=== PATIENT | male | born 1950 | race Caucasian/White ===

== ENCOUNTER 2017-10-02 19:15 | Observation (INO) ==
--- NOTE | 2017-10-02 19:51 | Emergency Department Note ---
Disposition Clinical Impression: Shortness of breath, Chest pain, rule out acute myocardial infarction Chest pain Qualifiers: Chest pain type: unspecified Qualified Code(s): R07.9 - Chest pain, unspecified Disposition: Admitted As Inpatient Condition: Fair Referrals: Vic López DO [Primary Care Provider] - Forms: ED Satisfaction Letter Time of Disposition: 21:44 General Adult HPI - General Chief complaint: ED Chest Pain Stated complaint: Chest Pain, Dizziness Time Seen by Provider: 10/02/17 19:23 Source: patient Mode of arrival: ambulatory Limitations: no limitations Nursing Notes Reviewed: Yes Vital Signs Reviewed: Yes - History of Present Illness HPI Narrative: Patient is a 66-year-old male that presents the emergency department with chest pain. Patient describes the chest pain as feeling like he had been punched in the chest. Patient states that at the time of examination he is chest pain- free. He does state that he has had some left arm and shoulder pain. Patient denies any worsening of his baseline shortness of breath with this chest pain. He does state that he had one episode of diaphoresis. Patient does state that he has a history of quadruple bypass that was approximately 14 years ago. He states that he had a catheterization a few years ago and was told that things looked okay at that time. Pain Scale: 8 - Related Data Allergies Allergy/AdvReac Type Severity Reaction Status Date / Time No Known Allergies Allergy Verified 10/02/17 19:17 All systems ED: reviewed and negative except as stated. Constitutional: Reports: other (diaphoresis). Denies: fever Cardiovascular: Reports: chest pain Respiratory: Reports: dyspnea (no worse than normal) Gastrointestinal: Denies: abdominal pain, nausea, vomiting Past Medical History - Past Medical History Medical history: Reports: arthritis, coronary artery disease, diabetes, hyperlipidemia, hypertension Surgical history: Reports: coronary bypass (CABG), orthopedic, other Psychiatric history: Reports: no psych history - Social History Smoking Status: Never smoker Alcohol use: Reports: none Drug use: Reports: none Physical Exam - General Limitations: no limitations General appearance: alert, in no apparent distress - Head Head exam: atraumatic, normocephalic - Eye Eye exam: Present: normal appearance, EOMI - Neck Neck exam: Present: normal inspection, full ROM, trachea midline - Chest Chest inspection: Present: normal inspection, symmetric chest wall rise, other ( scar from previous surgery ) - Respiratory Respiratory exam: Present: normal lung sounds bilaterally. Absent: respiratory distress, wheezes - Cardiovascular Cardiovascular exam: Present: normal rhythm, bradycardia, normal heart sounds, + S1, +S2 - Abdominal Exam Abdominal exam: Present: soft, Non-Tender, normal bowel sounds - Neurological Exam Neurological exam: Present: alert, oriented X3 - Psychiatric Psychiatric exam: Present: normal affect, normal mood - Skin Skin exam: Present: warm, dry, intact Course Vital Signs Temperature 97.8 F 10/02/17 19:17 Pulse Rate 54 10/02/17 19:17 Respiratory Rate 16 10/02/17 19:17 Blood Pressure 168/83 10/02/17 19:17 O2 Sat by Pulse Oximetry 95 10/02/17 19:17 Temperature 97.8 F 10/02/17 19:17 Pulse Rate 54 10/02/17 19:17 Respiratory Rate 16 10/02/17 19:17 Blood Pressure 168/83 10/02/17 19:17 O2 Sat by Pulse Oximetry 95 10/02/17 19:17 Oxygen Delivery Oxygen Delivery Room Air Medical Decision Making - MDM Narrative Medical decision making narrative: Based on the patient presenting to the emergency department with chest pain located in the center of his chest with an extensive cardiac history requiring quadruple bypass there is a high concern for cardiac related disease so we will obtain laboratory testing including a CBC, BMP, troponin and chest x-ray and EKG. Based on the patient's significant history and presenting illness I feel that this patient will likely need to be admitted to the hospital for further evaluation and management. Patient's laboratory testing was unremarkable. The chest x-ray did not show any acute process per radiology. His EKG did not show any acute ischemic changes at this time. However based on the significant past medical history and his presenting symptoms and feeling is necessary that the patient be admitted to the hospital for further evaluation and management. I called and spoke with the admitting hospitalist and he is except the patient to his service. Patient be admitted to the hospital this time for further evaluation and management. - Medical Records Medical records reviewed: Yes I reviewed the patient's medical records. - Lab Data Lab results reviewed: Yes I reviewed the patient's lab results. Result diagrams: 10/02/17 19:57 10/02/17 19:57 Lab Results 10/02/17 10/02/17 Range/Units 19:57 19:57 WBC 6.5 (4.3-11.1) K/mcL RBC 4.79 (4.19-5.50) M/mcL Hgb 14.4 (12.9-16.9) g/dL Hct 41.3 (37.5-50.1) % MCV 86.2 (83.0-100.0) fL MCH 30.1 (28.0-33.3) pg MCHC 34.9 (31.6-35.5) g/dL RDW 12.7 (11.5-14.5) % Plt Count 207 (140-400) K/mcL MPV 10.9 (9.4-12.4) fL Immature Gran % 0.2 (0-4) % Seg Neutrophils % 58.8 % Lymphocytes % 29.6 % Monocytes % 7.7 % Eosinophils % 2.9 % Basophils % 0.8 % Neutrophils # 3.8 (1.6-8.9) K/mcL Lymphocytes # 1.9 (0.6-4.6) K/mcL Monocytes # 0.5 (0.0-1.3) K/mcL Eosinophils # 0.2 (0.0-0.6) K/mcL Basophils # 0.1 (0.0-0.2) K/mcL Sodium 143 (136-145) mEq/L Potassium 3.3 L (3.5-5.1) mEq/L Chloride 106 (98-107) mEq/L Carbon Dioxide 30 H (23-29) mEq/L BUN 20 (8-23) mg/dL Creatinine 0.91 (0.70-1.30) mg/dL Est GFR ( Amer) > 60 (> 60) Est GFR (Non-Af Amer) > 60 (> 60) BUN/Creatinine Ratio 22 (6-26) Glucose 99 (70-105) mg/dL Calculated Osmolality 299 (280-300) Calcium 9.3 (8.6-10.3) mg/dL Troponin I < 0.03 (< 0.04) ng/mL - Radiology Data Radiology results reviewed: Yes I reviewed the patient's radiology results. Chest X-Ray 10/02/17 19:47 IMPRESSION: No acute process. D/ / Gurpreet Rivas MD / Gurpreet Rivas MD Interpreting Provider: Gurpreet Rivas MD - EKG Data EKG #1 EKG attestation: Yes I reviewed and interpreted this EKG. EKG results narrative: EKG shows a sinus bradycardia at a rate of 57 bpm, [place] interval of 191, QRS duration of 87, QTc of 387. This is compared to previous EKG on 04/19/10. This EKG also showed a sinus bradycardia at a rate of 54 bpm. No evidence of STEMI on EKG.
[2017-10-02 20:24] LABS: Basophils # 0.1 K/mcL (0.0-0.2); Basophils % 0.8 %; Eosinophils # 0.2 K/mcL (0.0-0.6); Eosinophils % 2.9 %; Hematocrit 41.3 % (37.5-50.1); Hemoglobin 14.4 g/dL (12.9-16.9); Immature Granulocytes % 0.2 % (0-4); Lymphocytes # 1.9 K/mcL (0.6-4.6); Lymphocytes % 29.6 %; Mean Corpuscular HGB Conc 34.9 g/dL (31.6-35.5); Mean Corpuscular Hemoglobin 30.1 pg (28.0-33.3); Mean Corpuscular Volume 86.2 fL (83.0-100.0); Mean Platelet Volume 10.9 fL (9.4-12.4); Monocytes # 0.5 K/mcL (0.0-1.3); Monocytes % 7.7 %; Neutrophils # 3.8 K/mcL (1.6-8.9); Platelet Count 207 K/mcL (140-400); Red Blood Count 4.79 M/mcL (4.19-5.50); Red Cell Distribution Width 12.7 % (11.5-14.5); Segmented Neutrophils % 58.8 %
[2017-10-02] MEDS ORDERED: Aspirin 81 MG TAB.CHEW PO STA (20:26)
--- NOTE | 2017-10-02 20:27 | Emergency Department Note ---
Disposition Clinical Impression: ACS (acute coronary syndrome) Disposition: Still a Patient Referrals: Vic López DO [Primary Care Provider] - Forms: ED Satisfaction Letter General Adult HPI - General Chief complaint: ED Chest Pain Stated complaint: Chest Pain, Dizziness Time Seen by Provider: 10/02/17 19:23 Source: patient Mode of arrival: ambulatory Limitations: no limitations - History of Present Illness Pain Scale: 8 - Related Data Allergies Allergy/AdvReac Type Severity Reaction Status Date / Time No Known Allergies Allergy Verified 10/02/17 19:17 Constitutional: Reports: other (diaphoresis). Denies: fever Cardiovascular: Reports: chest pain Respiratory: Reports: dyspnea (no worse than normal) Gastrointestinal: Denies: abdominal pain, nausea, vomiting Past Medical History - Past Medical History Medical history: Reports: arthritis, coronary artery disease, diabetes, hyperlipidemia, hypertension Surgical history: Reports: coronary bypass (CABG), orthopedic, other Psychiatric history: Reports: no psych history - Social History Smoking Status: Never smoker Alcohol use: Reports: none Drug use: Reports: none Physical Exam - General Limitations: no limitations General appearance: alert, in no apparent distress Course - Reevaluation(s) Reevaluation #1: Attestation Note I examined this patient and my medical decision-making was reviewed with the Resident Physician, PAULINE SOTO. I agree with the documented findings, disposition and treatment plan as described except to the extent set forth below. I have personally performed a face to face evaluation on this patient. I have reviewed and agree with the care plan. Briefly: 66-year-old male by private vehicle history quadruple bypass with chest pain and pressure. EKG shows nonspecific changes but no acute ischemic changes awaiting troponin. Physical examination is benign. Patient will be admitted on his our intention for ACS workup and rule out. Admission disposition pending Time: 20:25 Vital Signs Temperature 97.8 F 10/02/17 19:17 Pulse Rate 54 10/02/17 19:17 Respiratory Rate 16 10/02/17 19:17 Blood Pressure 168/83 10/02/17 19:17 O2 Sat by Pulse Oximetry 95 10/02/17 19:17 Temperature 97.8 F 10/02/17 19:17 Pulse Rate 54 10/02/17 19:17 Respiratory Rate 16 10/02/17 19:17 Blood Pressure 168/83 10/02/17 19:17 O2 Sat by Pulse Oximetry 95 10/02/17 19:17 Oxygen Delivery Oxygen Delivery Room Air Medical Decision Making - Lab Data Result diagrams: 10/02/17 19:57 Lab Results 10/02/17 Range/Units 19:57 WBC 6.5 (4.3-11.1) K/mcL RBC 4.79 (4.19-5.50) M/mcL Hgb 14.4 (12.9-16.9) g/dL Hct 41.3 (37.5-50.1) % MCV 86.2 (83.0-100.0) fL MCH 30.1 (28.0-33.3) pg MCHC 34.9 (31.6-35.5) g/dL RDW 12.7 (11.5-14.5) % Plt Count 207 (140-400) K/mcL MPV 10.9 (9.4-12.4) fL Immature Gran % 0.2 (0-4) % Seg Neutrophils % 58.8 % Lymphocytes % 29.6 % Monocytes % 7.7 % Eosinophils % 2.9 % Basophils % 0.8 % Neutrophils # 3.8 (1.6-8.9) K/mcL Lymphocytes # 1.9 (0.6-4.6) K/mcL Monocytes # 0.5 (0.0-1.3) K/mcL Eosinophils # 0.2 (0.0-0.6) K/mcL Basophils # 0.1 (0.0-0.2) K/mcL
[2017-10-02 20:45] LABS: BUN/Creatinine Ratio 22 (6-26); Blood Urea Nitrogen 20 mg/dL (8-23); Calcium 9.3 mg/dL (8.6-10.3); Carbon Dioxide 30 mEq/L (23-29); Chloride 106 mEq/L (98-107); Glucose 99 mg/dL (70-105); Osmolality,Calculated 299 (280-300); Potassium 3.3 mEq/L (3.5-5.1); Sodium 143 mEq/L (136-145); eGFR For African Americans > 60 (> 60); eGFR For Non-African Americans > 60 (> 60)
[2017-10-02 20:46] LABS: Troponin I < 0.03 ng/mL (< 0.04)
[2017-10-02] MEDS ORDERED: D5% in Water 1,000 ML IVC PRN (23:17)
[2017-10-02] MEDS ORDERED: Naloxone 0.4 MG/ML INJ IVP PRN (23:17)
[2017-10-02] MEDS ORDERED: Dextrose Gel 15 GM/37.5 ML TUBE PO PRN ×2 (23:17)
[2017-10-02] MEDS ORDERED: *HR* Dextrose 50 % in Water (Syg) 50 ML SYRINGE IVP PRN (23:17)
[2017-10-02] MEDS ORDERED: Acetaminophen 325 MG TABLET PO PRN (23:17)
[2017-10-02] MEDS ORDERED: *HR* OxyCODONE Immed Rel 5 MG TABLET PO PRN (23:17)
[2017-10-02] MEDS ORDERED: Nitroglycerin 0.4 MG TAB.SUBL SL PRN (23:25)
[2017-10-02] MEDS ORDERED: hydroCHLOROthiazide 25 MG TABLET PO SCH (23:30)
[2017-10-02] MEDS ORDERED: Lisinopril 20 MG TABLET PO SCH (23:30)
--- NOTE | 2017-10-02 23:32 | Internal Med History&Physical ---
Date of Encounter: 10/02/17 Time of Encounter: 22:45 Internal Medicine - H&P: HPI Chief complaint: chest pain Admitted From: Emergency Dept Plans for Post Hospital Care: Home History of present illness: Mr. Redmond is a 66 year old male who presents with a 24-hour history of chest pain, tightness, exertional dyspnea, and diaphoresis. Symptoms started with exertion which were improved with rest. He therefore came to the ER where his workup was essentially negative. Nonetheless, because of symptoms and cardiac history, he was admitted to the hospitalist service for further workup and care. Upon my assessment of the patient, he is currently chest pain free. In hindsight, he states he did have anginal symptoms more frequently over the last few months. He has a history of coronary disease and had coronary bypass grafting in 2003. He follows with cardiology at another facility. He last had a cardiac workup and heart catheterization about 4 years ago. At that time, he was told his cardiac status was stable. He has never had anginal type symptoms such as above until about 2-3 months ago. He also complains of fatigue and weakness after prolonged exertion. However, lately, he is unable to exert himself without getting short of breath and developing chest tightness. Past Med Surg Social Fam HX - Past Medical History Attestation: Yes The following information was validated with the patient. Source: patient, old records reviewed Medical history: arthritis, coronary artery disease, diabetes, hyperlipidemia, hypertension Psychiatric history: no psych history - Past Surgical History Surgical History: coronary bypass (CABG) - Social History Smoking Status: Never smoker Smokeless Tobacco Status: No Alcohol use: none Drug use: none Current living situation: Home, With Family Activity Level: Independent ambulation Recent Out of Country Travel Within the Last 8 Weeks: No - Family History Mother Living Status: Hx Family Cardiac Disorders: No Father Living Status: Hx Family Cardiac Disorders: Yes Internal Medicine - H&P: Meds Lisinopril [Zestril] 25 mg PO ONCE 10/02/17 [History] Metoprolol [Lopressor] 25 mg PO BID 10/02/17 [History] Tamsulosin [Flomax] 0.4 mg PO ONCE 10/02/17 [History] hydroCHLOROthiazide [Hydrochlorothiazide] 25 mg PO ONCE 10/02/17 [History] 3 Allergy/AdvReac Type Severity Reaction Status Date / Time No Known Allergies Allergy Verified 10/02/17 19:17 - Constitutional Constitutional: fatigue, no chills, no fever(s), no night sweats - EENT Eyes: no blurry vision, no change in vision Ears: no ear pain, no tinnitus Nose, mouth and throat: no nasal congestion, no sinus pain, no sinus pressure - Cardiovascular Cardiovascular ROS IM: chest pain, diaphoresis, dyspnea, dyspnea on exertion, no orthopnea, no palpitations, no paroxysmal nocturnal dyspnea - Respiratory Respiratory: no cough, no hemoptysis, no chest congestion, no excessive phlegm production, no change in phlegm color - Gastrointestinal Gastrointestinal: no abdominal pain, no diarrhea, no hematemesis, no hematochezia, no melena, no nausea, no vomiting - Genitourinary Genitourinary ROS male: no dysuria, no flank pain, no hematuria - Musculoskeletal Musculoskeletal ROS IM: no arthralgias, no atrophy, no back pain - Integumentary Integumentary IM: no rash, no jaundice - Neurological Neurological ROS: no dizziness, no focal weakness, no frequent falls, no headache(s) - Psychiatric Psychiatric: no anxiety, no depression - Endocrine Endocrine IM: no polydipsia, no polyuria - Hematologic/Lymphatic Hematologic/Lymphatic: no easy bruising, no lymphadenopathy - Allergic/Immunologic Allergic/Immunologic: no wheezing, no GI upset with certain foods - Constitutional Vitals: Temp Pulse Resp BP Pulse Ox 97.6 F 46 18 181/85 97 10/02/17 22:16 10/02/17 22:16 10/02/17 22:16 10/02/17 22:16 10/02/17 22:16 General appearance: Present: cooperative, A&O X 3, no acute distress, answers questions appropriately - Head Head exam: Present: normal inspection - Eye Eye exam: Present: EOMI, normal appearance, PERRL. Absent: scleral icterus Pupils: Present: normal accommodation - ENT ENT exam: Present: mucous membranes moist, normal exam - Neck Neck exam general surgery: Present: full ROM, supple. Absent: tenderness, nuchal rigidity, thyromegaly - Respiratory Respiratory exam: Present: CTAB. Absent: chest wall tenderness, rales, rhonchi , wheezes - Cardiovascular Cardiovascular exam: Present: RRR, +S1, +S2. Absent: diastolic murmur, systolic murmur - GI/Abdominal GI/Abdominal exam: Present: normal bowel sounds, soft. Absent: hepatomegaly, mass, splenomegaly, tenderness - Extremities Exam Extremities exam: Present: full ROM, normal capillary refill, warm, radial pulses palpable and symmetrical. Absent: calf tenderness, joint swelling, pedal edema, tenderness - Back Exam Back exam: Absent: CVA tenderness (L), CVA tenderness (R) - Neurological Exam Neurological exam: Present: alert, CN II-XII intact, oriented X3, no focal deficits - Psychiatric Psychiatric exam: Present: normal affect, normal mood - Skin Skin exam: Present: dry, warm. Absent: rash Internal Med - H&P Results - Labs CBC & Chem 7: 10/02/17 19:57 10/02/17 19:57 - EKG Data -: EKG Interpreted by Myself - EKG Data Prior EKG available for review: yes EKG comments: 10/02/17 23:35 NSR; subtle ST-T flattening anteriorly; no acute changes - Diagnostic Studies Chest x-ray Status: image reviewed by me (negative) - Assessment and plan (1) Chest pain Current Visit: Yes Status: Acute Assessment and plan: 1. Will trend troponins and EKG's. 2. Will order ECHO. 3. Will order stress test and try to obtain old records. 4. SL NTG PRN chest pain. Qualifiers: Chest pain type: chest pain due to myocardial ischemia Qualified Code(s): I20.8 - Other forms of angina pectoris (2) CAD (coronary artery disease) Current Visit: Yes Status: Chronic Assessment and plan: 1. Try to obtain old records. 2. Continue home meds as appropriate. 3. If stress test abnormal and/or ECHO abnormal, will need cardiology consult. Qualifiers: Coronary Disease-Associated Artery/Lesion type: [place] artery [place] vs. transplanted heart: [place] heart Associated angina: with stable angina Qualified Code(s): I25.118 - Atherosclerotic heart disease of [place] coronary artery with other forms of angina pectoris (3) Prediabetes Current Visit: Yes Status: Acute Assessment and plan: 1. Will place on SSI and monitor closely. (4) DVT prophylaxis Current Visit: Yes Status: Acute Assessment and plan: 1. Heparin SQ.
[2017-10-03 02:47] LABS: Basophils % 1.2 %; Hematocrit 39.6 % (37.5-50.1); Hemoglobin 13.8 g/dL (12.9-16.9); Immature Granulocytes % 0.2 % (0-4); Lymphocytes % 38.3 %; Mean Corpuscular HGB Conc 34.8 g/dL (31.6-35.5); Mean Corpuscular Hemoglobin 29.9 pg (28.0-33.3); Mean Corpuscular Volume 85.7 fL (83.0-100.0); Mean Platelet Volume 10.7 fL (9.4-12.4); Monocytes % 10.8 %; Platelet Count 187 K/mcL (140-400); Red Blood Count 4.62 M/mcL (4.19-5.50); Red Cell Distribution Width 12.7 % (11.5-14.5); Segmented Neutrophils % 44.5 %
[2017-10-03 02:48] LABS: Basophils # 0.1 K/mcL (0.0-0.2); Eosinophils # 0.3 K/mcL (0.0-0.6); Lymphocytes # 1.9 K/mcL (0.6-4.6); Monocytes # 0.5 K/mcL (0.0-1.3); Neutrophils # 2.2 K/mcL (1.6-8.9); Nucleated Red Blood Cells 0.4 /100 WBC (0)
[2017-10-03 02:52] LABS: INR 1.1; Prothrombin Time 11.3 Seconds (9.4-12.1)
[2017-10-03 02:55] LABS: Activated Partial Thrombo Time 27.4 Seconds (26.0-36.0)
[2017-10-03 03:02] LABS: Alanine Aminotransferase 11 Units/L (7-52); Albumin 3.5 g/dL (3.5-5.7); Albumin/Globulin Ratio 1.8 (1.1-2.2); Alkaline Phosphatase 57 Units/L (34-104); Aspartate Amino Transferase 15 Units/L (13-39); BUN/Creatinine Ratio 29 (6-26); Bilirubin,Total 0.5 mg/dL (0.3-1.0); Blood Urea Nitrogen 22 mg/dL (8-23); Carbon Dioxide 29 mEq/L (23-29); Chloride 108 mEq/L (98-107); Chol/HDL Ratio 2.8 (0-4.9); Cholesterol 91 mg/dL (< 200); Globulin 1.9 g/dL (2.4-3.5); Glucose 106 mg/dL (70-105); HDL Cholesterol 32 mg/dL (40-59); LDL Cholesterol,Calculated 42 mg/dL (0-99); Osmolality,Calculated 296 (280-300); Potassium 3.4 mEq/L (3.5-5.1); Sodium 141 mEq/L (136-145); Total Protein 5.4 g/dL (6.4-8.9); Triglycerides 83 mg/dL (< 150); eGFR For African Americans > 60 (> 60); eGFR For Non-African Americans > 60 (> 60)
[2017-10-03] MEDS: *HR* Heparin 5,000 UNIT/ML VIAL SQ SCH ×2 (05:53→16:54)
[2017-10-03] MEDS: Insulin LISPRO 300 UNITS/3 ML VIAL SQ SCH ×3 (07:53→16:33)
[2017-10-03 08:35] LABS: Estimated Average Glucose 134 mg/dl; Hemoglobin A1C 6.3 %
[2017-10-03] MEDS: hydroCHLOROthiazide 25 MG TABLET PO SCH (13:09)
[2017-10-03] MEDS: Aspirin 325 MG TABLET PO SCH (13:09)
[2017-10-03] MEDS ORDERED: Perflutren Lipid Microsphere 1.3 ML in 0.9 % Sodium Chloride 8.7 ML IVP ONE (15:00)
[2017-10-03] MEDS ORDERED: *HR* OxyCODONE/APAP 5/325 TABLET PO PRN (16:51)
--- NOTE | 2017-10-03 16:55 | Internal Med Progress Note ---
Date of Encounter: 10/03/17 Time of Encounter: 10:37 - Assessment and plan (1) Chest pain Current Visit: Yes Status: Resolved Assessment and plan: Chest pain resolved now. Cardiac enzymes trended negative x 4. Scheduled for ECHO and stress test tomorrow. NPO after midnight. Some mild HTN this AM. Restarted home medications so BP should now improve. Continue home percocet, and nitroglycerin PRN pain. Continue telemetry and supplemental oxygen. Qualifiers: Chest pain type: chest pain due to myocardial ischemia Ischemic chest pain type: unspecified angina pectoris type Qualified Code(s): I25.9 - Chronic ischemic heart disease, unspecified (2) CAD (coronary artery disease) Current Visit: Yes Status: Chronic Assessment and plan: Try to obtain old records. Continue home medications. Consult cardiology if needed after ECHO and stress test tomorrow. Qualifiers: Coronary Disease-Associated Artery/Lesion type: [place] artery [place] vs. transplanted heart: [place] heart Associated angina: with stable angina Qualified Code(s): I25.118 - Atherosclerotic heart disease of [place] coronary artery with other forms of angina pectoris (3) Prediabetes Current Visit: Yes Status: Acute Assessment and plan: Continue accuchecks and SSI QID AC/HS. (4) DVT prophylaxis Current Visit: Yes Status: Acute Assessment and plan: Continue SQ heparin. - Time Spent With Patient Total time spent is greater than 50% in coordination of care (as documented) at patient's floor/unit and/or counseling patient: less than 15 minutes - Subjective Interval history: Patient had no acute events overnight. He denies chest pain at this time. He denies SOB, fever, chills, nausea, and vomiting. He has no complaints at this time. Patient is admitted for ECHO and stress test tomorrow. - Constitutional Vitals: Temp Pulse Resp BP Pulse Ox 97.9 F 64 16 178/74 93 10/03/17 16:20 10/03/17 16:20 10/03/17 16:20 10/03/17 16:20 10/03/17 16:20 General appearance: Present: cooperative, A&O X 3, pleasant, no acute distress, answers questions appropriately - Respiratory Respiratory exam: Present: CTAB. Absent: accessory muscle use, rales, rhonchi, wheezes Additional comments: Normal WOB - Cardiovascular Cardiovascular exam: Present: RRR, +S1, +S2. Absent: diastolic murmur, gallop, rubs, systolic murmur Additional comments: No BLE edema - GI/Abdominal GI/Abdominal exam: Present: normal bowel sounds, soft. Absent: distended, hepatomegaly, mass, splenomegaly, tenderness - Psychiatric Psychiatric exam: Present: normal affect, normal mood. Absent: agitated, anxious, depressed - Skin Skin exam: Present: dry, intact, warm. Absent: cyanosis, rash Internal Medicine: Result - Labs CBC & Chem 7: 10/03/17 02:31 10/03/17 02:31 Labs: Short CBC 10/03/17 Range/Units 02:31 WBC 5.0 (4.3-11.1) K/mcL Hgb 13.8 (12.9-16.9) g/dL Hct 39.6 (37.5-50.1) % Plt Count 187 (140-400) K/mcL Neutrophils # 2.2 (1.6-8.9) K/mcL BMP 10/03/17 02:31 Sodium 141 Potassium 3.4 L Chloride 108 H Carbon Dioxide 29 BUN 22 Creatinine 0.77 Glucose 106 H Calcium 9.0 Cardiac Enzymes 10/03/17 10/03/17 10/03/17 Range/Units 02:31 08:33 13:51 Troponin I < 0.03 < 0.03 < 0.03 (< 0.04) ng/mL Liver Function 10/03/17 Range/Units 02:31 Total Bilirubin 0.5 (0.3-1.0) mg/dL AST 15 (13-39) Units/L ALT 11 (7-52) Units/L Alkaline Phosphatase 57 (34-104) Units/L Albumin 3.5 (3.5-5.7) g/dL - ABG Interpretation ABG results: PT/INR, D-dimer PT 11.3 Seconds (9.4-12.1) 10/03/17 02:31 Consult Discharge Plan - Plan Referrals: Vic López DO [Primary Care Provider] -
[2017-10-04 05:22] LABS: BUN/Creatinine Ratio 20 (6-26); Blood Urea Nitrogen 17 mg/dL (8-23); Calcium 8.8 mg/dL (8.6-10.3); Carbon Dioxide 28 mEq/L (23-29); Chloride 106 mEq/L (98-107); Glucose 107 mg/dL (70-105); Osmolality,Calculated 290 (280-300); Potassium 3.5 mEq/L (3.5-5.1); Sodium 139 mEq/L (136-145); eGFR For African Americans > 60 (> 60); eGFR For Non-African Americans > 60 (> 60)
[2017-10-04] MEDS: *HR* Heparin 5,000 UNIT/ML VIAL SQ SCH (06:02)
[2017-10-04] MEDS ORDERED: Regadenoson 0.4 MG/5 ML SYRINGE IVP ONE (06:35)
[2017-10-04] MEDS: Insulin LISPRO 300 UNITS/3 ML VIAL SQ SCH ×2 (09:25→12:44)
[2017-10-04] MEDS: hydroCHLOROthiazide 25 MG TABLET PO SCH (09:26)
[2017-10-04] MEDS: Aspirin 325 MG TABLET PO SCH (09:26)
--- NOTE | 2017-10-04 13:14 | Electrocardiograph Report ---
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
--- NOTE | 2017-10-04 15:34 | Electrocardiograph Report ---
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
[2017-10-04 15:58] VITALS: BP 165/71
--- NOTE | 2017-10-04 16:34 | Discharge Summary ---
- NOTES TO OUTPATIENT PROVIDER Notes to Outpatient Provider: Follow up with PCP in 2-3 days after discharge. Recheck BMP (hypokalemia) at that time. Follow up with regular wooden boat builder as directed. Orders not resulted at time of discharge: Pending orders 10/04/17 06:00 NM isaura perf SPECT multi [NM] Routine 10/05/17 04:00 BMP [Basic Metabolic Panel] AM 0400 Date of Encounter: 10/04/17 Time of Encounter: 10:07 - Discharge Diagnosis (1) Chest pain Priority: Primary Status: Resolved Qualifiers: Chest pain type: chest pain due to myocardial ischemia Ischemic chest pain type: unspecified angina pectoris type Qualified Code(s): I25.9 - Chronic ischemic heart disease, unspecified (2) CAD (coronary artery disease) Priority: Secondary Status: Chronic Qualifiers: Coronary Disease-Associated Artery/Lesion type: [place] artery [place] vs. transplanted heart: jena heart Associated angina: with stable angina Qualified Code(s): I25.118 - Atherosclerotic heart disease of j[place] coronary artery with other forms of angina pectoris (3) Prediabetes Priority: Secondary Status: Chronic (4) DVT prophylaxis Priority: Secondary Status: Acute Hospital course: Mr. Redmond is a 66 year old male admitted for chest pain ruleout. Patient was admitted to general medical floor for observation with telemetry. Cardiac enzymes trended negative x 3. Home CAD medications were continued. ECHO showed LVEF 60-65% with no significant valvular dysfunction. Nuclear stress test was negative for ischemia or infarct. Patient has had no chest pain since admission. He wants to go home. He will follow up with PCP in 2-3 days after discharge. A BMP (hypokalemia) can be rechecked at that time. Follow up with regular wooden boat builder as directed. Patient has met maximum benefit of this hospitalization and will be discharged home in stable condition. Discharge discussed with: patient, nurse - Time Spent with Patient Total time spent providing and/or coordinating discharge services: Less than 30 minutes - Discharge Medications Home Medications: Metoprolol [Lopressor] 25 mg PO BID 10/02/17 [History] Tamsulosin [Flomax] 0.4 mg PO HS 10/02/17 [History] hydroCHLOROthiazide [Hydrochlorothiazide] 25 mg PO DAILY 10/02/17 [History] Aspirin [Ecotrin] 325 mg PO HS 10/03/17 [History] Lisinopril [Zestril] 5 mg PO DAILY 10/03/17 [History] OxyCODONE/APAP 5/325 [Percocet 5/325 MG] 1 tab PO Q6H PRN 10/03/17 [History] Rosuvastatin Calcium 20 mg PO HS 10/03/17 [History] Allergies/Adverse Reactions: 3 Allergy/AdvReac Type Severity Reaction Status Date / Time No Known Allergies Allergy Verified 10/03/17 12:08 Date of admission: 10/02/17 21:43 Primary care physician: Vic López Discharging clinician: Cortes Rodriguez Anticipated date of discharge: 10/04/17 - Constitutional Vitals: Temp Pulse Resp BP Pulse Ox 97.5 F L 50 17 165/71 97 10/04/17 15:56 10/04/17 15:56 10/04/17 11:49 10/04/17 15:56 10/04/17 15:56 General appearance: Present: cooperative, A&O X 3, pleasant, no acute distress, answers questions appropriately - Respiratory Respiratory exam: Present: CTAB. Absent: accessory muscle use, rales, rhonchi, wheezes Additional comments: Normal WOB - Cardiovascular Cardiovascular exam: Present: RRR, +S1, +S2. Absent: diastolic murmur, gallop, rubs, systolic murmur Additional comments: No BLE edema - GI/Abdominal GI/Abdominal exam: Present: normal bowel sounds, soft. Absent: distended, hepatomegaly, mass, splenomegaly, tenderness - Psychiatric Psychiatric exam: Present: normal affect, normal mood. Absent: agitated, anxious, depressed - Skin Skin exam: Present: dry, intact, warm. Absent: cyanosis, rash - Patient Status Disposition: Home, Self-Care Condition: Good Functional capacity at discharge: independent ambulation Overall status at discharge: patient is back to baseline - Discharge Instructions Instructions: Chest Pain (DC) Follow Up With: Vic López DO [Primary Care Provider] - 10/11/17 9:45 am Additional Instructions: Follow up with PCP in 2-3 days after discharge. Recheck BMP (hypokalemia) at that time. Follow up with regular wooden boat builder as directed. - Diet and Activity Activity: resume usual activities as tolerated Diet: low fat, low cholesterol, low salt diet, other (Cardiac Diet)
== END 2017-10-04 17:00 | disposition home or self-care (01) ==
LOC: EMEROO 19:15 → 3BNU 19:15
PROVIDERS: ADMIT Internal Medicine; ATTEND Internal Medicine